=== PATIENT | female | born 1995 | race Caucasian/White ===

== ENCOUNTER 2016-10-02 20:45 | Emergency (ER) | payer SELFPAY ==
[2016-10-02 21:17] VITALS: RESP 18; TEMP 97.6
--- NOTE | 2016-10-02 23:36 | PDOC ---
Foot / Ankle Injury - General Chief Complaint: Lower Extremity Problem/Injury Stated Complaint: RIGHT FOOT/ANKLE INJURY Date Seen by Provider: 10/02/16 Time Seen by Provider: 20:50 Source: POSITIVE: Patient Exam Limitations: POSITIVE: No limitations Nurse's Notes Reviewed & Considered: Yes - History of Present Illness Initial Comments: The patient is a 20-year-old female who presents to the emergency department with complaints of right foot and ankle injury. She states that she was walking when she stepped wrong and twisted her right ankle and foot. She now has intense pain primarily over the lateral aspect of her ankle with radiation up her leg and down into her foot. She is unable to bear weight secondary to pain. She denies any prior injuries or fractures. She has no other associated injuries or complaints. Have you received a tetanus shot in the past 10 years?: Yes - Patient Allergies Allergies/Adverse Reactions: Allergies Allergy/AdvReac Type Severity Reaction Status Date / Time Penicillins Allergy RASH Verified 10/02/16 20:54 - Patient Home Medications Home Medications: Home Medications NK [No Home Medications Reported] 10/02/16 Past Medical History - heen HEENT History: Denies History Cardiovascular History: Denies History Respiratory History: Denies History Gastrointestinal History: Irritable Bowel Syndrome Genitourinary History: Denies History Endocrine History: Denies History Musculoskeletal History: Denies History Neurological History: Denies History Blood Disorders: Denies History Psychiatric History: Denies History Female Reproductive History: Other (please comment) Additional Female Reproductive History: Inconsistent menstrual periods. Obstetrical History: Denies History Cancer History: Denies History In Past Year Been Physically Harmed or Verbally Threatened: No History of MDRO: No Tobacco Use: Never Smoker Alcohol Use: None Substance Use Type: None Previous Surgical History: Yes Type / Date of Surgery: Tonsillectomy and Adnoidectomy. Past Medical History Reviewed: Reviewed - No Changes ROS - Limitations ROS Limitations: No Limitations (Review of systems otherwise noncontributory) Foot / Ankle Exam - General Appearance General Appearance: POSITIVE: Alert, Cooperative, No Acute Distress - Extremities Foot: POSITIVE: Other (examination the right foot reveals no obvious swelling or deformity, she does have tenderness over the lateral aspect of the foot, good dorsalis pedis pulse, good cap refill in her toes, she reports decreased sensation in her foot and toes) Ankle: POSITIVE: Other (she does have some mild swelling over the lateral malleolus with associated tenderness, limited range of motion at the ankle secondary to pain, no obvious bony deformity) Gait: POSITIVE: Limited by Pain Neuro: POSITIVE: Motor Normal Vascular: POSITIVE: No Vascular Compromise Foot / Ankle Progress - Results Reviewed by me Radiology Findings: X-ray of the right foot and ankle are negative for any fracture or dislocation. - Patient's Progress MDM / ED Course: X-rays of the right foot and ankle are negative for any obvious fracture. She does have significant pain and is unable to bear weight. She was placed in a cam walker boot and given crutches to assist with ambulation. She will continue ice and elevation as well as regular anti-inflammatory. She is advised return to the emergency room if she develops increased pain or numbness. She is advised follow-up with orthopedic surgery if continued pain in 5-7 days. - Consult Counseled: POSITIVE: Patient, RE: Radiology Results, RE: DX, RE: Need for F/U Patient Care Time - Estimated PCT Patient Care Time (In Minutes): 15 Vital Signs - Recent Vital Signs Vital Signs: Vital Signs (Last 8 hours) Temp Pulse Resp BP Pulse Ox 10/02/16 20:45 97.6 F 100 18 139/97 97 - VS Reviewed Vital Signs Reviewed: Yes Discharge Clinical Impression: Sprain of ankle Discharge Disposition: Discharged to Home Condition: Stable Patient Instructions Given at Discharge: Ankle Sprain (ED) Additional Instructions: The x-rays of the right foot and ankle did not reveal any obvious fracture. This injury most likely represents a sprain (soft tissue injury). Recommend Cam Walker boot for comfort. Crutches to assist with walking. You can bear weight on the right foot as tolerated. Ice and elevate the right foot and ankle to help reduce swelling. Recommend ibuprofen 600 mg every 6 hours as needed for pain. Return to the emergency room if increased pain or swelling, numbness, any worsening or change in symptoms. Follow Up With: NONE,NONE [Primary Care Provider] -
--- NOTE | 2016-10-04 11:28 | DI ---
RIGHT ANKLE, 10/02/2016 7:55 PM: Clinical History: Injury. The patient fell. Previous Exam: None at this facility. 3 views are submitted. There is no acute soft tissue, osseous, or joint abnormality. On the lateral v iew, there is a lucent line along the anterior aspect of the ankle joint overlying the medial and lat eral malleoli. This probably is a summation artifact, but if the patient has symptoms either on the m edial or lateral aspect on a followup clinical exam, then a repeat study is recommended. Readin. No definite fracture is identified although there is a lucency along the anterior aspect of the m edial and lateral malleoli on the lateral projection. 2. If symptoms persist at the affected site, then follow-up films are recommended in 7-10 days.
--- NOTE | 2016-10-04 11:39 | DI ---
RIGHT FOOT, 10/02/2016 7:55 PM: Clinical History: Injury. The patient fell. Previous Exam: None at this facility. 3 views are submitted. There is no acute soft tissue, osseous, or joint abnormality. As noted on the right ankle exam obtained today, the lateral view of the foot shows a lucency that probably represent s a summation artifact between the medial and lateral malleolus. However, if the patient has continue d symptoms either on the medial or lateral aspect of the ankle, then followup films are recommended. Readin. Normal right foot exam. 2. If symptoms persist at the affected site, then follow-up films are recommended in 7-10 days.
== END 2016-10-02 22:17 | disposition home or self-care (01) ==
LOC: ER 20:45
DX: S93.402A Sprain of unspecified ligament of left ankle, initial encounter (principal); X50.1XXA Overexertion from prolonged static or awkward postures, initial encounter
CPT/HCPCS: 73610; 73630; 99283